=== PATIENT | female | born 1965 | race Caucasian/White ===

== ENCOUNTER 2021-02-15 11:25 | Outpatient (CLI) | payer BC | END 2021-02-15 11:26 | disposition home or self-care (01) | LOC: CSHCT 11:25 | PROVIDERS: ATTEND Physician Assistant | DX: M43.16 Spondylolisthesis, lumbar region (principal); M54.16 Radiculopathy, lumbar region; M54.5 Low back pain; M41.9 Scoliosis, unspecified; M43.17 Spondylolisthesis, lumbosacral region; M51.36 Other intervertebral disc degeneration, lumbar region; M48.07 Spinal stenosis, lumbosacral region | CPT/HCPCS: 72120; 72131 ==